=== PATIENT | female | born 1960 | race Caucasian/White ===

== ENCOUNTER 2018-05-02 03:27 | Inpatient (IN) | payer SELFPAY ==
[~2018-05-02] VITALS: Ht 170.2 cm; Wt 61.4 kg
[~2018-05-02 03:27] MED LIST: AMLODIPINE BESYL5 MG PO; BENADRYL25 M1 PO; MAG OXIDE400 MG PO; PREDNISONE10 MG PO; PRILOSEC20 MG PO; XANAX1 MG PO
[2018-05-02 04:33] LABS: IMMATURE GRANULOCYTES 0.3 % (0.0-5.0); MEAN CORPUSCULAR HGB 30.5 pG CALC (26.0-32.0); MEAN CORPUSCULAR HGB CONC 33.2 g/L CALC (32.0-36.0); NEUT# 9.82 thou/uL (2.00-7.15); RED BLOOD COUNT 5.37 mill/uL (4.20-5.60); RED CELL DISTRI WIDTH 13.6 % (11.5-15.5)
[2018-05-02 04:34] LABS: HEMATOCRIT 49.4 % (37.0-47.0); HEMOGLOBIN 16.4 g/dl (12.0-16.0)
[2018-05-02 04:36] LABS: URINE BLOOD DIPSTICK SMALL (NEGATIVE); URINE COLOR YELLOW; URINE GLUCOSE - DIPSTICK NEGATIVE (NEGATIVE); URINE KETONE TRACE mg/dL (NEGATIVE); URINE LEUK ESTERASE TRACE (NEGATIVE); URINE NITRITE - DIPSTICK NEGATIVE (Negative); URINE PH 5.5 (4.5-8.0); URINE PROTEIN - DIPSTICK TRACE mg/dL (NEG-TRACE); URINE SPECIFIC GRAVITY >=1.030; URINE UROBILINOGEN - DIPSTICK 0.2 E.U./dL (0.2)
[2018-05-02 04:40] LABS: URINE CLARITY TURBID
[2018-05-02 04:41] LABS: URINE BILIRUBIN - DIPSTICK NEGATIVE (NEGATIVE)
[2018-05-02 04:56] LABS: ALKALINE PHOSPHATASE 111 u/l (38-126); AMYLASE 698 u/l (30-110); ANION GAP 17 (6-22 (CALC)); BILIRUBIN, TOTAL 0.8 mg/dL (0.0-1.4); BUN 12 mg/dL (7-17); BUN/CREATININE RATIO 27 (12-20 (CALC)); CARBON DIOXIDE 21 mmol/l (22-30); CHLORIDE 105 mmol/l (95-108); CREATININE 0.5 mg/dL (0.5-1.0); GFR > 60 ML/MIN (>=60 (CALC)); GFR FOR AFR.AMER. > 60 ML/MIN (>=60 (CALC)); POTASSIUM 3.8 mmol/l (3.5-5.1); SGOT/AST 14 u/l (14-36); SODIUM 140 mmol/l (137-146)
[2018-05-02 04:57] LABS: ALBUMIN 3.9 g/dL (3.2-5.0); ETHYL ALCOHOL < 10 mg/dl (0-30); TOTAL PROTEIN 6.9 g/dL (6.3-8.2)
[2018-05-02 04:59] LABS: URINE BACTERIA FEW hpf; URINE RBC 0-2 RBC/hpf (0-5); URINE SQUAMOUS EPITHELIAL CELL MANY EPI/hpf (0-FEW)
[2018-05-02 05:00] LABS: URINE AMORPH SEDIMENT MANY hpf (NONE-FEW); URINE MUCUS FEW hpf (NONE-FEW)
[2018-05-02 05:02] LABS: LIPASE 4153 u/l (23-300)
[2018-05-02 09:30] VITALS: BP 143/70
[2018-05-02 12:07] LABS: CHOLESTEROL HDL RATIO 5.4 (<4.4 (CALC))
[2018-05-02 16:45] VITALS: BP 116/64
[2018-05-02 19:25] VITALS: BP 146/70
[2018-05-03 05:17] VITALS: BP 124/78
[2018-05-03 06:17] LABS: IMMATURE GRANULOCYTES 0.3 % (0.0-5.0); MEAN CELL VOLUME 95.5 fL CALC (80.0-100.0); MEAN CORPUSCULAR HGB 30.7 pG CALC (26.0-32.0); MEAN CORPUSCULAR HGB CONC 32.1 g/L CALC (32.0-36.0); NEUT# 5.13 thou/uL (2.00-7.15); RED BLOOD COUNT 3.98 mill/uL (4.20-5.60); RED CELL DISTRI WIDTH 13.5 % (11.5-15.5)
[2018-05-03 06:20] LABS: HEMOGLOBIN 12.2 g/dl (12.0-16.0)
[2018-05-03 06:31] LABS: ALKALINE PHOSPHATASE 78 u/l (38-126); ANION GAP 12 (6-22 (CALC)); BILIRUBIN, TOTAL 0.4 mg/dL (0.0-1.4); BUN 4 mg/dL (7-17); BUN/CREATININE RATIO 10 (12-20 (CALC)); CARBON DIOXIDE 27 mmol/l (22-30); CHLORIDE 104 mmol/l (95-108); CREATININE 0.4 mg/dL (0.5-1.0); GFR > 60 ML/MIN (>=60 (CALC)); GFR FOR AFR.AMER. > 60 ML/MIN (>=60 (CALC)); MAGNESIUM 1.4 mg/dL (1.6-2.3); POTASSIUM 3.9 mmol/l (3.5-5.1); SGOT/AST 19 u/l (14-36); SODIUM 139 mmol/l (137-146)
[2018-05-03 06:42] LABS: ALBUMIN 2.9 g/dL (3.2-5.0); TOTAL PROTEIN 5.4 g/dL (6.3-8.2)
[2018-05-03 06:49] LABS: AMYLASE 188 u/l (30-110); LIPASE 289 u/l (23-300)
[2018-05-03 08:20] VITALS: BP 128/56
[2018-05-03 11:15] VITALS: BP 165/67
[2018-05-03 15:45] VITALS: BP 133/64
[2018-05-03 19:10] VITALS: BP 118/62
[2018-05-04 03:19] VITALS: BP 97/51
[2018-05-04 05:28] LABS: HEMOGLOBIN 12.7 g/dl (12.0-16.0); MEAN CELL VOLUME 95.2 fL CALC (80.0-100.0); MEAN CORPUSCULAR HGB 30.2 pG CALC (26.0-32.0); MEAN CORPUSCULAR HGB CONC 31.8 g/L CALC (32.0-36.0); RED BLOOD COUNT 4.2 mill/uL (4.20-5.60); RED CELL DISTRI WIDTH 13.3 % (11.5-15.5)
[2018-05-04 05:32] LABS: ANION GAP 10 (6-22 (CALC)); BUN 4 mg/dL (7-17); BUN/CREATININE RATIO 9 (12-20 (CALC)); CARBON DIOXIDE 30 mmol/l (22-30); CHLORIDE 106 mmol/l (95-108); CREATININE 0.5 mg/dL (0.5-1.0); GFR > 60 ML/MIN (>=60 (CALC)); GFR FOR AFR.AMER. > 60 ML/MIN (>=60 (CALC)); POTASSIUM 4.1 mmol/l (3.5-5.1); SODIUM 142 mmol/l (137-146)
[2018-05-04 05:54] LABS: MAGNESIUM 2.1 mg/dL (1.6-2.3)
[2018-05-04 07:30] VITALS: BP 127/56
[2018-05-04 07:49] VITALS: BP 133/44
[2018-05-04 08:17] VITALS: BP 127/56
[2018-05-04] MEDS ORDERED: LORTAB 7.57.5 MG PO ×2 (13:01→13:03)
[2018-05-04] MEDS ORDERED: XANAX1 MG PO (13:01)
== END 2018-05-04 14:07 | disposition home or self-care (01) | DRG 440 ==
LOC: ED 03:27 → ED-I 05:44 → ED 05:59 → MS2 06:00
PROVIDERS: Family Medicine; Internal Medicine Nephrology; Nurse Practitioner Family; ADMIT Internal Medicine; ATTEND Internal Medicine
DX: K85.90 Acute pancreatitis without necrosis or infection, unspecified (principal); K86.1 Other chronic pancreatitis; E86.0 Dehydration; I10 Essential (primary) hypertension; K59.00 Constipation, unspecified; F17.210 Nicotine dependence, cigarettes, uncomplicated; B37.3 Candidiasis of vulva and vagina; T36.95XA Adverse effect of unspecified systemic antibiotic, initial encounter; E83.42 Hypomagnesemia; Z86.73 Personal history of transient ischemic attack (TIA), and cerebral infarction without residual deficits
CPT/HCPCS: J1650; S0164